=== PATIENT | female | born 1985 | race Caucasian/White ===

== ENCOUNTER → 2016-06-02 | Outpatient (CLI) | payer MEDICARE | LOC: RAD 16:50 | DX: M54.2 Cervicalgia (principal); M54.9 Dorsalgia, unspecified | CPT/HCPCS: 72050; 72072; 72110 ==

== ENCOUNTER 2016-06-21 18:03 | Emergency (ER) | payer MEDICARE ==
[2016-06-21 19:37] LABS: HEMOGLOBIN 11.7 gm/dl (12.3-15.3); RED BLOOD COUNT 4.32 M/UL (4.00-5.10)
[2016-06-21 19:48] LABS: BUN/CREATININE RATIO 12 (0-10)
== END 2016-06-21 20:35 | disposition home or self-care (01) ==
LOC: ER1 18:03
PROVIDERS: Physician Assistant Medical
DX: M79.661 Pain in right lower leg (principal); G62.9 Polyneuropathy, unspecified; F17.210 Nicotine dependence, cigarettes, uncomplicated; Z88.1 Allergy status to other antibiotic agents; Z88.8 Allergy status to other drugs, medicaments and biological substances; Z79.899 Other long term (current) drug therapy; Z86.718 Personal history of other venous thrombosis and embolism; Z86.711 Personal history of pulmonary embolism
CPT/HCPCS: 36415; 80053; 85025; 85379; 85610; 85730; 96372; 99283; J1650

== ENCOUNTER 2016-06-22 14:51 | Emergency (ER) | payer MEDICARE | END 2016-06-22 19:25 | disposition home or self-care (01) | LOC: ER1 14:51 | DX: M79.661 Pain in right lower leg (principal); F17.200 Nicotine dependence, unspecified, uncomplicated; Z86.711 Personal history of pulmonary embolism; Z86.718 Personal history of other venous thrombosis and embolism; Z88.1 Allergy status to other antibiotic agents; Z88.8 Allergy status to other drugs, medicaments and biological substances; Z79.899 Other long term (current) drug therapy | CPT/HCPCS: 93971; 99283 ==